=== PATIENT | female | born 1965 | race Caucasian/White ===

== ENCOUNTER → 2017-08-05 12:06 | Outpatient (CLI) | payer OTHER, SELFPAY ==
[2017-08-05 16:09] LABS: Absolute Lymphocyte Count 1.68 X10^3/ul (0.83-4.51); Absolute Neutrophil Count 7.6 X10^3/uL (2.0-7.7); Basophil# 0.03 X10^3/uL; Basophil% 0.3 % (0-1); Eosinophils% 6.4 % (0-5); Hematocrit 27.7 % (37-47); Hemoglobin 8.8 g/dl (12.0-15.0); Lymphocyte # 1.68 X10^3/ul (4.0); Lymphocyte % 15.3 % (19-41); Mean Corp Hgb Conc 31.8 g/gl (32-36); Mean Corpuscular Volume 94.5 fL (81-99); Mean Platelet Vol. 11.7 fl (6.2-12.0); Monocyte# 0.91 X10^3/uL; Monocyte% 8.3 % (0-10); Neutrophil % 68.9 % (47-70); Platelet Count 196 K/mm3 (150-450); RBC Distribution Width CV 15.1 % (11.6-14.6); RBC Distribution Width SD 49.4 fl (35.1-43.9); Red Blood Count 2.93 M/mm3 (4.2-5.4)
[2017-08-05 16:12] LABS: POSITIVE COUNT NO; POSITIVE DIFFERENTIAL NO; POSITIVE MORPHOLOGY NO
[2017-08-05 16:38] LABS: ALB/GLOB Ratio 0.7 RATIO (0.9-2.4); AST(SGOT) 38 U/L (15-37); Alanine Aminotransfer ALT/SGPT 33 U/L (13-56); Albumin, Serum 2.9 g/dL (3.2-5.0); Alkaline Phosphatase 44 U/L (45-117); Anion Gap 13 (5-15); BUN 69 mg/dL (7-18); BUN/Creat Ratio 56.1 RATIO (10-20); Calcium,Total 10.3 mg/dL (8.5-10.1); Chloride 105 mmol/L (98-107); Creatinine, Serum 1.23 mg/dL (0.55-1.02); EST Glomerular Filtration Rate 49 mL/min (>60); Est Glom Filt Rate - Afr Amer 59 mL/min (>60); Ferritin 104 ng/mL (8-252); Globulin 4.1 g/dL (2.2-4.2); Glucose 161 mg/dL (74-106); Iron Binding Capacity,Total 307 ug/dL (250-450); Potassium 4.7 mmol/L (3.5-5.1); Sodium Level 138 mmol/L (136-145); Thyroid Stim Hormone (TSH) 1.96 uIU/mL (0.358-3.74)
[2017-08-05 16:43] LABS: Hemoglobin A1c 7.9 % (4.2-6.3)
[2017-08-06 09:01] LABS: Vitamin D,25 Hydroxy 28.2 ng/mL (19.95-100.01)
[2017-08-11 03:07] LABS: Influenza A 1:32 (Neg:<1:8)
[2017-08-11 07:59] LABS: Influenza B 1:32 (Neg:<1:8)
== END ==
PROVIDERS: Family Provider Family Medicine; PCP Family Medicine; Visit Provider Family Medicine
DX: E11.29 Type 2 diabetes mellitus with other diabetic kidney complication (principal); D50.9 Iron deficiency anemia, unspecified; E61.2 Magnesium deficiency; M79.1 Myalgia; J11.1 Influenza due to unidentified influenza virus with other respiratory manifestations
CPT/HCPCS: 36415; 80053; 82306; 82728; 83036; 83550; 83735; 84443; 85025; 86710

== ENCOUNTER 2017-11-24 11:21 | Emergency (ER) | payer OTHER, SELFPAY ==
--- NOTE | 2017-11-24 11:21 | DT_ITS ---
This patient was seen during an EMR downtime November 22, 2017 - November 29, 2017. This patient may have a combination of paper and electronic documentation or all paper documentation. All documentation is viewable within the e-chart portion of [facility] for each patient visit.
--- NOTE | 2017-12-24 07:47 | ED.VISSUMM ---
- ER Visit Summary Date of Service: 12/24/17 Chief Complaint: Patient arrived by ambulance unresponsive with no heartbeat or respiration History of Present Illness: The patient is a 52 F who was found by coworker unresponsive. EMS was dispatched at 1052. Patient was intubated and administered medication prior to arrival. No history is available. Circumstances that led to patient being unresponsive are unknown. Physical Examination: Patient arrived intubated with a GCS of 3T. When she arrived she had fixed and dilated pupils. A transthoracic ultrasound was performed which revealed no cardiac activity. Test Results: None Emergency Department Course and Treatment: With down time greater than 30 minutes, fixed dilated pupils and no cardiac activity patient was pronounced at 1124. Treatment Plan: Transthoracic ultrasound to evaluate for cardiac activity Disposition: Marriage Therapist was contacted and disposition per corner Impression: Cardiopulmonary arrest of unknown cause This note was generated with [employer] dictation software. It may contain incorrect words, spelling, and punctuation that were not noted in review of the chart prior to signing ED Disposition - Plan for ED Patient: Disposition: Referrals: Royer Hayes MD [Primary Care Provider] -
--- NOTE | 2017-12-24 07:51 | ED.DCSUM_ITS ---
- ER Visit Summary Date of Service: 12/24/17 Chief Complaint: Patient arrived by ambulance unresponsive with no heartbeat or respiration History of Present Illness: The patient is a 52 F who was found by coworker unresponsive. EMS was dispatched at 1052. Patient was intubated and administered medication prior to arrival. No history is available. Circumstances that led to patient being unresponsive are unknown. Physical Examination: Patient arrived intubated with a GCS of 3T. When she arrived she had fixed and dilated pupils. A transthoracic ultrasound was performed which revealed no cardiac activity. Test Results: None Emergency Department Course and Treatment: With down time greater than 30 minutes, fixed dilated pupils and no cardiac activity patient was pronounced at 1124. Treatment Plan: Transthoracic ultrasound to evaluate for cardiac activity Disposition: Language Instructor was contacted and disposition per corner Impression: Cardiopulmonary arrest of unknown cause This note was generated with [employer] dictation software. It may contain incorrect words, spelling, and punctuation that were not noted in review of the chart prior to signing ED Disposition - Plan for ED Patient: Disposition: Referrals: Royer Hayes MD [Primary Care Provider] -
== END 2017-11-24 14:00 ==
LOC: ED 11-25 18:03
PROVIDERS: Emergency Provider Emergency Medicine; Family Provider Family Medicine; PCP Family Medicine
DX: I46.9 Cardiac arrest, cause unspecified (principal)
CPT/HCPCS: 92950; 99291; J7030; A4216